=== PATIENT | female | born 1960 | race Caucasian/White ===

== ENCOUNTER 2023-08-04 00:53 | Emergency (ER) | payer MEDICAID ==
[~2023-08-04] VITALS: Ht 172.7 cm; Wt 83.9 kg
[2023-08-04] MEDS ORDERED: LORA.5 (02:26)
[2023-08-04 05:00] VITALS: BP 136/86
[2023-08-04] MEDS ORDERED: KETOROLAC TROMET5 ML RIGHTEYE (05:00)
[2023-08-04] MEDS ORDERED: Cyclogyl 1% Opth2 ML RIGHTEYE (05:00)
[2023-08-04] MEDS ORDERED: Ciprofloxacin2.5 ML RIGHTEAR (05:00)
== END 2023-08-04 05:20 | disposition home or self-care (01) ==
LOC: ER 00:53
DX: S05.01XA Injury of conjunctiva and corneal abrasion without foreign body, right eye, initial encounter (principal); W50.0XXA Accidental hit or strike by another person, initial encounter; Z79.899 Other long term (current) drug therapy
CPT/HCPCS: 99283; A9270

== ENCOUNTER 2023-08-19 08:32 | Emergency (ER) | payer MEDICAID ==
[~2023-08-19] VITALS: Ht 172.7 cm; Wt 81.7 kg
[~2023-08-19 08:32] MED LIST: Ciprofloxacin2.5 ML RIGHTEAR; Cyclogyl 1% Opth2 ML RIGHTEYE; KETOROLAC TROMET5 ML RIGHTEYE; LORA.5
[2023-08-19 08:42] VITALS: BP 159/74
[2023-08-19] MEDS ORDERED: Lamictal150 MG PO (08:46)
[2023-08-19] MEDS ORDERED: CLONAZEPAM1 MG PO (08:46)
[2023-08-19] MEDS ORDERED: Ativan1 MG PO (09:13)
[2023-08-19] MEDS ORDERED: SUBVENITE150 M5 PO (09:13)
== END 2023-08-19 09:58 | disposition home or self-care (01) ==
LOC: ER 08:32
DX: Z76.0 Encounter for issue of repeat prescription (principal); F41.9 Anxiety disorder, unspecified; Z79.899 Other long term (current) drug therapy
CPT/HCPCS: 99281